=== PATIENT | male | born 1980 | race American Indian/Alaskan Native ===

== ENCOUNTER → 2020-12-23 15:10 | Outpatient (CLI) | payer OTHER, SELFPAY ==
--- NOTE | 2020-12-23 | DI.RAD.S_ITS ---
PROCEDURE: XR TIBIA FUBULA RT 2V INDICATIONS: RIGHT LEG PAIN TECHNIQUE: 2 views of the tibia and fibula were acquired. COMPARISON: None. FINDINGS: Bones: No fractures or dislocations. No suspicious bony lesions. Soft tissues: No suspicious soft tissue calcifications or masses. IMPRESSION: Normal for age, source of current right leg pain symptoms is not seen. Dictated by: Juan Darden M.D. on 12/23/2020 at 17:12 Approved by: Juan Darden M.D. on 12/23/2020 at 17:12
--- NOTE | 2020-12-23 15:16 | DI.US.S_ITS ---
PROCEDURE: US PERIPH VENOUS LOW EXTREM RT INDICATIONS: PAIN AND SWELLING RIGHT LOWER LEG TECHNIQUE: Real-time imaging, as well as color and pulse Doppler interrogation, were performed of the lower extremity deep veins from the inguinal ligament to the popliteal fossa. COMPARISON: None. FINDINGS: The common femoral, femoral and popliteal veins are normally compressible, and free of intraluminal thrombus. Color and pulse Doppler demonstrate normal phasic intraluminal flow. There is normal augmentation response to distal compression maneuver. Superficial complex fluid collection involving the anterior arevalo which may represent an evolving hematoma given the history of trauma. Correlate clinically. IMPRESSION: No deep venous thrombosis identified within the right lower extremity. At the site of injury, there is a superficial complex fluid collection over the anterior arevalo likely representing an involving hematoma. Recommend clinical correlation and follow-up. Dictated by: Mario Alberto Hauser [facility] Interpreted: Sudhir Navas MD on 12/23/2020 at 16:36 Approved by: Sudhir Navas M.D. on 12/23/2020 at 17:32
== END ==
PROVIDERS: Referring Provider Family Medicine; Visit Provider Family Medicine
DX: M79.604 Pain in right leg (principal); M79.89 Other specified soft tissue disorders
CPT/HCPCS: 73590; 93971